=== PATIENT | male | born 1960 | race African-American/Black ===

== ENCOUNTER 2018-02-27 20:38 | Inpatient (IN) ==
--- OUTSIDE RECORDS SUMMARY | 2018-02-27 20:54 | External Medical Summary | Continuity of Care Document ---
:1960 Author Organization [facility] in [place] Allergies Active Description Code Type Severity Reaction Onset Reported/ Identified Relationship Clinical to Patient Status Yes Toradol NKMA Severe N/A 11/01/2014 Yes Ultram NKMA Mild N/A 11/01/2014 Yes Toradol NKMA Severe N/A 11/01/2014 Yes Ultram NKMA Mild N/A 11/01/2014 Yes iodine NKMA N/A hives 03/27/2017 Yes traMADol NKMA N/A hives 03/27/2017 Yes iodine NKMA N/A hives 03/27/2017 Yes traMADol NKMA N/A hives 03/27/2017 Medications Medication Packaging Start Stop Route Dosage Sig Date Date 11/01/20 Oral HYDROcodone(HYDR 4 14 Oral, q12hr Ocodone) 11/03/20 Oral 0.5 mg ALPRAZolam(Xanax 4 14 0.5 mg, ) Oral, BID, PRN: as needed for anxiety 11/03/20 Oral 81 mg aspirin(aspirin) 4 14 81 mg, Oral, Daily 0.5 mL 11/01/20 IV Push 1 mg LORazepam(Ativan 4 14 1 mg, IV ) Push, Once 1 tabs 11/03/20 Oral HYDROcodone-acet 4 14 1 tabs, aminophen([place] Oral, QID, 1 10 mg-325 mg tablet oral oral tablet) 3-4 times a day as needed, PRN: as needed for pain 11/03/20 Oral multivitamin(mul 4 14 1 tablet, tivitamin) Oral, Daily 11/03/20 Oral 75 mg pregabalin(Kitty 4 14 75 mg, Oral, a) BID 11/03/20 Oral 400 mg gabapentin(gabap 4 14 400 mg, entin) Oral, QID 11/03/20 Oral 15 mg mirtazapine(mirt 4 14 15 mg, Oral, azapine) Bedtime (once a day) 11/03/20 Oral 60 mg DULoxetine(DULox 4 14 60 mg, Oral, etine) BID 1 Each 11/04/20 Oral 2 mg nicotine(nicotin 4 14 2 mg, 1 e 2 mg oral Each, Oral, transmucosal q1hr, PRN: gum) Other (See Comment) 1 patches 11/04/20 TransDermal nicotine(Habitro 4 14 1 patches, l 14 mg/24 hr TransDermal, transdermal Daily film, extended release) 2 tabs 11/04/20 Oral 650 mg acetaminophen(ac 4 14 650 mg, etaminophen) Oral, q4hr, PRN: Pain Mild (1-3) 1 tabs 11/03/20 Oral 4 mg ondansetron(Zofr 4 14 4 mg, Oral, an) q6hr, PRN: Nausea 1 tabs 11/03/20 Oral 1 mg folic acid(folic 4 14 1 mg, Oral, acid) Daily 1 mL 11/03/20 IV Push 2 mg LORazepam(Ativan 4 14 2 mg, IV ) Push, Once, PRN: Seizure 1 mL 11/03/20 IntraMuscular 25 mg promethazine(Phe 4 14 25 mg, nergan) IntraMuscula r, q4hr, PRN: Nausea 0.1 mL 11/03/20 IV Push 0.5 mg haloperidol(Hald 4 14 0.5 mg, IV ol) Push, q2hr, PRN: Other (See Comment) 1 tabs 11/03/20 Oral 100 mg thiamine(thiamin 4 14 100 mg, e) Oral, Daily 1 caps 11/04/20 Oral 60 mg DULoxetine(DULox 4 14 60 mg, Oral, etine) Daily 1 tabs 11/04/20 Oral 15 mg mirtazapine(mirt 4 14 15 mg, Oral, azapine) Bedtime (once a day) 1 tabs 11/04/20 Oral 81 mg aspirin(aspirin) 4 14 81 mg, Oral, Daily 1 caps 11/04/20 Oral 400 mg gabapentin(gabap 4 14 400 mg, entin) Oral, QID 1 tabs 11/04/20 Oral HYDROcodone-acet 4 14 1 tabs, aminophen(HYDROc Oral, q8hr, odone-acetaminop PRN: Pain hen 7.5 mg-325 Moderate mg oral tablet) (4-6) 1 tabs 04/24/20 Oral HYDROcodone-acet 4 17 1 tabs, aminophen(HYDROc Oral, q8hr, odone-acetaminop PRN: Pain hen 7.5 mg-325 Moderate mg oral tablet) (4-6) 1 caps 04/24/20 Oral 60 mg DULoxetine(DULox 4 17 1 caps, etine 60 mg oral Oral, Daily delayed release capsule) 1 tabs 04/24/20 Oral 81 mg aspirin(aspirin 4 17 1 tabs, 81 mg oral Oral, Daily tablet, chewable) 1 tabs 04/24/20 Oral 15 mg mirtazapine(mirt 4 17 1 tabs, azapine 15 mg Oral, oral tablet) Bedtime (once a day) 1 caps 10/06/20 Oral 400 mg gabapentin(gabap 4 15 1 caps, entin 400 mg Oral, QID oral capsule) 1 tabs 11/04/20 Oral 5 mg amLODIPine(amLOD 4 14 5 mg, Oral, IPine) Daily 2 tabs 08/16/20 Oral sulfamethoxazole 5 15 2 tabs, -trimethoprim(Ba Oral, BID, ctrim DS 800 for 10 days, mg-160 mg oral SUP MD tablet) EVANGELINA, 40 tabs, 0 Refill(s) 1 tabs 08/17/20 Oral oxyCODONE-acetam 5 15 1 tabs, inophen(oxyCODON Oral, Once E-acetaminophen 5 mg-325 mg oral tablet) 0.5 mL 08/17/20 IV Push 1 mg LORazepam(Ativan 5 15 1 mg=0.5 mL, ) IV Push, Once 1 mL 08/17/20 IV Push 4 mg morphine(morphin 5 15 4 mg=1 mL, e 4 mg/mL IV Push, syringe 1 mL) Once, PRN: Pain 1 tabs 04/24/20 Oral acetaminophen-co 5 17 1 tabs, deine(Tylenol Oral, q6hr, with Codeine #3 PRN: as oral tablet) needed for pain, 12 tabs, 0 Refill(s) 2 mL 08/21/20 IV Push 4 mg ondansetron(Zofr 5 15 4 mg=2 mL, an) IV Push, Once 0.5 mL 08/22/20 IV Push 0.5 mg HYDROmorphone(Di 5 15 0.5 mg=0.5 laudid) mL, IV Push, q15min, PRN: Pain 1 tabs 08/29/20 Oral HYDROcodone-acet 5 15 1 tabs, aminophen([place] Oral, TID, 7.5 mg-325 mg for 5 days, oral tablet) PRN: as needed for pain, 15 tabs, 0 Refill(s) 1 tabs 04/01/20 Oral HYDROcodone-acet 7 17 1 tabs, aminophen([place] Oral, q6hr, 10 mg-325 mg for 5 days, oral tablet) PRN: as needed for pain, 20 tabs, 0 Refill(s) Oral pregabalin(Kitty 7 Oral, 0 a) Refill(s) 1 tabs Oral 10 mg pravastatin(prav 7 10 mg=1 astatin 10 mg tabs, Oral, oral tablet) Daily, 30 tabs, 2 Refill(s) 1 tabs Oral 10 mg amLODIPine(amLOD 7 10 mg=1 IPine 10 mg oral tabs, Oral, tablet) Daily, 30 tabs, 2 Refill(s) 1 tabs Oral 81 mg aspirin(aspirin 7 81 mg=1 81 mg oral tabs, Oral, tablet, Daily, 30 chewable) tabs, 3 Refill(s) 1 tabs SubLingual 0.4 mg nitroglycerin(ni 7 0.4 mg=1 troglycerin 0.4 tabs, mg sublingual SubLingual, tablet) q5min, PRN: as needed for chest pain, 30 tabs, 1 Refill(s) Problems Date Dx Attending Type Code Diagnosis Diagnosed By Coded 06/30/2015 Kade NELSON, Reason 724.5 BACKACHE, UNSPECIFIED Florentin Y 06/30/2015 Kade NELSON, Reason 799.9 OTHER UNKNOWN AND Florentin Y UNSPECIFIED CAUSE OF MORBIDITY OR MORTALITY 08/09/2015 Kade NELSON, Final 305.1 TOBACCO USE DISORDER Florentin Y 08/09/2015 Kade NELSON, Final 682.3 CELLULITIS AND Florentin Palm ABSCESS OF UPPER ARM AND FOREARM 08/09/2015 Kade NELSON, Reason 709.9 UNSPECIFIED DISORDER Florentin Palm OF SKIN AND SUBCUTANEOUS TISSUE 11/20/2016 Braun Howard Final F17.210 Nicotine dependence, cigarettes, uncomplicated 11/20/2016 Braun Howard Final J44.9 Chronic obstructive pulmonary disease, unspecified 11/20/2016 Braun Howard Reason R05 Cough 03/27/2017 Chandra, Final G89.29 Other chronic pain [place] 03/27/2017 Chandra, Final I10 Essential (primary) [place] hypertension 03/27/2017 Chandra, Final 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 03/27/2017 Chandra, Final Z77.090 Contact with and [place] (suspected) exposure to asbestos 04/24/2017 Sanjay Final I10 Essential (primary) Gabriel, Dwayne hypertension Kirill 04/24/2017 Grace Final I25.10 Atherosclerotic heart Dwayne Rios disease of [place] Kirill coronary artery without angina pectoris 01/29/2018 Mensah Nelson Final F17.210 Nicotine dependence, cigarettes, uncomplicated 01/29/2018 Mensah Nelson Final F43.10 Post-traumatic stress disorder, unspecified 01/29/2018 Mensah Nelson Final I10 Essential (primary) hypertension 01/29/2018 Mensah Nelson Final I25.10 Atherosclerotic heart disease of [place] coronary artery without angina pect 01/29/2018 Mensah Nelson Final J32.9 Chronic sinusitis, unspecified 01/29/2018 Mensah Nelson Reason R05 Cough 01/29/2018 Mensah Nelson Final Z79.82 intermediate (current) use of aspirin 01/29/2018 Mensah Nelson Final Z86.73 Personal history of transient ischemic attack (TIA), and cerebral infarctio 01/29/2018 Mensah Nelson Final Z88.6 Allergy status to analgesic agent status 01/29/2018 Mensah Nelson Final Z91.041 Radiographic dye allergy status 01/29/2018 Mensah Nelson Final Z91.14 Patient''s other noncompliance with medication regimen 01/29/2018 Mensah Nelson Final Z98.890 Other specified postprocedural states Procedures Code Description [place] [address] 03/27/2017 Electrocardiogram, routine ECG with at least 12 leads; tracing only, without interpretation and report [id number] 03/27/2017 Electrocardiogram, routine ECG with at least 12 leads; interpretation and report only 39855 General health 03/27/2017 panel This panel must include the following: Comprehensive metabolic panel (04464) Blood count, complete (CBC), automated and automated differential WBC count (92701 or 03514 and 58070) 54637 Comprehensive 03/27/2017 metabolic panel This panel must include the following: Albumin (97421) Bilirubin, total (21223) Calcium, total (80867) Carbon dioxide (bicarbonate) (16027) Chloride (72044) Creatinine (8 63262 Lipid panel 03/27/2017 This panel must include the following: Cholesterol, serum, total (05667) Lipoprotein, direct measurement, high density cholesterol (HDL cholesterol) (70051) Triglycerides (36492)..... 37399 Urinalysis, by 03/27/2017 dip stick or tablet reagent for bilirubin, glucose, hemoglobin, ketones, leukocytes, nitrite, pH, protein, specific gravity, urobilinogen, any number of these constituents; automated, w 69059 Prostate 03/27/2017 specific antigen (PSA); total 94221 Thyroid 03/27/2017 stimulating hormone (TSH) 27782 Blood count; 03/27/2017 complete (CBC), automated (Hgb, Hct, RBC, WBC and platelet count) and automated differential WBC count 11026 Office or 03/27/2017 other outpatient visit for the evaluation and management of a new patient, which requires these 3 barry components: A comprehensive history; A comprehensive examination; Medical decision sujata 17532 04/24/2017 Electrocardiogram, routine ECG with at least 12 leads; with interpretation and report 51343 Office or 04/24/2017 other outpatient visit for the evaluation and management of a new patient, which requires these 3 barry components: A comprehensive history; A comprehensive examination; Medical decision sujata Results Test Result Range Urinalysis with reflex microscopic - 03/30/17 03:15 Appearance Clear NA Bilirubin Negative NA Negative Blood Negative NA Negative Color Yellow NA Glucose, Urine Negative Negative Ketones Negative Negative Leukocyte Esterase Negative NA Negative Nitrites Negative NA Negative pH 5.5 NA 5.0-8.0 Protein Negative Negative Specific [place] 1.020 NA 1.003-1.030 UA Collection type Clean Catch NA Urobilinogen 0.2 mg/dL <1.0 CBC With Platelet and Differential - 03/30/17 03:15 Absolute Basophils 0.06 10*3/uL 0.00-0.20 Absolute Eosinophils 0.26 10*3/uL 0.00-0.50 Absolute Lymphocytes 1.85 10*3/uL 0.80-3.30 Absolute Monocytes 0.57 10*3/uL 0.30-1.00 Absolute Neutrophils 5.52 10*3/uL 1.90-7.00 Basophils 1 % 0-2 Eosinophils 3 % 0-4 HCT 44.1 % 42.0-52.0 HGB 14.9 g/dL 14.0-18.0 Immature Granulocytes 1.3 % 0.0-1.0 Lymphocytes 22 % 20-46 MCH 32.3 pg 27.0-32.0 MCHC 33.8 g/dL 32.0-36.0 MCV 95.7 fL 82.0-99.0 Monocytes 7 % 4-11 MPV 10.2 fL 8.8-14.8 Neutrophils 66 % 51-75 Platelet Count 295 K/uL 150-400 RBC 4.61 10*6/uL 4.60-6.20 RDW 14.2 % 11.5-14.5 WBC 8.4 K/uL 4.8-10.8 Comprehensive Metabolic Panel (CMP) - 03/30/17 03:15 Albumin 4.0 g/dL 3.5-5.0 Alkaline Phosphatase 61 U/L 40-150 ALT (SGPT) 16 U/L 0-55 Anion Gap 9 mEq/L 3-20 AST (SGOT) 21 U/L 5-34 Bilirubin Total 0.2 mg/dL 0.2-1.2 BUN 17 mg/dL 8-26 Calcium 9.6 mg/dL 8.4-10.2 Chloride 108 mEq/L 99-111 CO2 24 mEq/L 23-31 Creatinine 1.65 mg/dL 0.72-1.25 Globulin 3.6 g/dL 1.8-4.0 Glucose 99 mg/dL 70-99 Potassium 4.5 mEq/L 3.5-5.2 Protein 7.6 g/dL 6.1-7.7 Sodium 141 mEq/L 135-144 Lipid Panel - 03/30/17 03:15 Cardiac Risk 2.7 0.0-5.7 Cholesterol 170 mg/dL 0-199 HDL Cholesterol 62 mg/dL 40-84 LDL Cholesterol 82 mg/dL 0-130 Triglycerides 128 mg/dL 0-149 VLDL Cholesterol 26 mg/dL 0-28 PSA - 03/30/17 03:15 PSA 1.1 ng/mL 0.0-3.5 TSH - 03/30/17 03:15 TSH 1.08 uIU/mL 0.35-4.94 eGFR - 03/30/17 03:15 eGFR 43 mL/min >60 Encounters ACCT No. Visit Discharge Status Pt. Type Provider Facility Loc./Unit Complaint Date/Time [id number] 01/28/2018 01/28/2018 [place] [facility] ED cough 670 03:20:00 04:16:00 [facility] [id number] 11/16/2016 11/16/2016 ARIANNE Emergency Braun [facility] ED fever , flu 992 12:33:00 14:01:00 [facility] [id number] 08/17/2015 08/17/2015 DELTA Braun MD, Via [facility] ED L HAND 755 13:32:00 23:59:59 [facility] [id number] 08/06/2015 08/06/2015 ARIANNE Braun MD, Via [facility] ED SWELLING IN 119 14:12:00 16:21:00 [facility] [id number] 06/29/2015 06/29/2015 DIS Emergency Kade NELSON, Via [facility] ED Cough, Diff 945 15:37:00 15:50:00 Florentin Néstor [facility] on [place] [id number] 06/29/2015 06/29/2015 DIS Emergency Kade NELSON, Via [facility] ED upper back 449 14:52:00 15:27:00 Florentin Néstor Saba pain, cough Hospital on [facility] [id number] 11/01/2014 11/01/2014 CLS Emergency [place] [facility] ED psych eval 596 04:58:00 23:59:59 , [facility] on [facility] [id number] 04/25/2017 Document [id number] 05:23:03 Registrat ion [id number] 03/28/2017 Document [id number] 05:16:02 Registrat ion [id number] 09/01/2015 Document [id number] 14:24:54 Registrat ion [id number] 09/01/2015 Document [id number] 14:14:44 Registrat ion [id number] 09/01/2015 Document [id number] 10:44:47 Registrat ion [id number] 04/24/2017 04/24/2017 DIS Outpatien Grace [facility] NPV CAD 680 13:15:00 23:59:00 t Saba Rios NIERNBERGER [facility] Kirill [id number] 04/24/2017 04/24/2017 DIS Outpatien Grace [facility] Mur I25.10 759 00:01:00 23:59:00 t Saba Rios [facility] Kirill [id number] 03/27/2017 03/27/2017 DIS Outpatien [place] [facility] FM NPV BACK AND 747 11:39:00 23:59:00 t er, Saba SHOULDER [facility] PAIN [id number] 03/27/2017 03/27/2017 DIS Outpatien [place] [facility] Mur i10 918 00:01:00 23:59:00 t er, Saba Card [facility] [id number] 09/08/2015 09/08/2015 DIS Outpatien Prachi, [facility] IM NPV-EST 039 13:53:00 23:59:00 t Sera [facility] [id number] 08/24/2015 08/24/2015 DIS Outpatidarlene Justyna, Via [facility] HAND ISSUE 776 13:55:00 23:59:00 alonso [facility]
--- NOTE | 2018-02-27 21:07 | Emergency Department Report ---
Psych HPI - General Chief Complaint: Psychiatric Symptoms <NickKavya A - 02/27/18 21:07> Stated Complaint: Psych Eval <Kavya Romero - 02/27/18 21:07> Time Seen by Provider: 02/27/18 20:42 <Kavya Romero 02/27/18 21:07> Source: patient <Destinee Romerosandoval Aggarwal - 02/27/18 21:07> Mode of arrival: ambulatory <Kavya Romero 02/27/18 21:07> - History of Present Illness HPI Narrative: 57-year-old male presents to ER with suicidal ideation and depression. Patient says that he has felt like hurting himself for approx. one week. Says he does have a plan but does not want to share it. Patient is agitated and says he is tired of answering everyone questions. Says he has been self medicating with cocaine and alcohol. Patient was sent to ED from [place] for medical clearance. <Kavya Romero 02/28/18 00:01> MD complaint: suicidal ideation <Kavya Romero 02/27/18 21:07> Context: recent alcohol abuse, recent drug abuse <Kavya Romero - 02/27/18 23:59> Associated psychiatric symptoms: suicidal ideation <Kavya Romero 23:59> - Related Data Home Medications Medication Instructions Recorded Confirmed Lidocaine 1 each TP Q8H PRN 02/28/18 02/28/18 Morphine Sulfate *IR* [Morphine 15 mg PO Q12H 02/28/18 02/28/18 Sulfate *Ir*] Oxycodone/Apap 10/325 [Percocet 1 tab PO Q6H PRN 02/28/18 02/28/18 10/325] Pregabalin [Lyrica] 200 mg PO BID 02/28/18 02/28/18 methylPREDNISolone [Medrol DOS-SHAWNEE] 1 pack PO UNK 02/28/18 02/28/18 <Kavya Romero - 02/27/18 21:24> Allergies Allergy/AdvReac Type Severity Reaction Status Date / Time tramadol Allergy Intermediate Rash Verified 02/28/18 02:58 ketorolac [From Toradol] Allergy Unknown Verified 02/28/18 08:06 <Kavya Romero - 18 21:24> Review of Systems All systems: reviewed and negative except as stated <Kavya Romero 21:07> Constitutional: Reports: as per HPI, chills <Kavya Romero Alessia 02/27/18 21:21 > Musculoskeletal: Reports: as per HPI, back pain (chronic), arthralgia (chronic) , myalgia (chronic), other (neck and shoulder chronic) <Kavya Romero Alessia 21:21> Psychiatric: Reports: as per HPI, depression, suicidal thoughts <Kavya Romero 02/27/18 21:21> [facility] Patient Stated Medical History Cataracts Yes Hypertension Yes Myocardial Infarction Yes: x2 Chronic Obstructive Pulmonary Yes Disease (COPD) Depression Yes Post Traumatic Stress Disorder Yes Substance Use Disorder Yes <Kavya Romero 02/27/18 21:21> Surgical History: Shoulder arthroscopy <Kavya Romero 02/27/18 22:24> Family History: Noncontributory <Kavya Romero 02/27/18 22:24> - Social History Household members: significant other <Kavya Romero 02/27/18 22:24> Physical Exam - Limitations Limitations: no limitations <Kavya Romero 02/27/18 21:21> - General General appearance: alert <Kavya Romero 02/27/18 21:21> - Normal Exams: Head:: Normocephalic without trauma <Kavya Romero 02/27/18 21:21> Eyes:: Pupils are PERRLA w/ EOMI, No scleral icterus, irritation <Kavya Romero 02/27/18 21:21> ENMT:: No facial trauma, nasal exudates <Kavya Romero Alessia 02/27/18 22:24> Neck:: Full range of motion, without adenopathy <Destinee Romerosanodval Aggarwal 02/27/18 21:21> Chest/Respirations:: Clear all carvalho, with good airflow, and symmetry bilaterally <RomeroKavya A 02/27/18 21:21> Cardiovascular:: Regular rate and rhythm, without murmur or gallop <Nick Kavya A 02/27/18 21:21> Abdomen:: Bowel sounds positive, soft, non-tender, non-distended, no hepatosplenomegaly <Kavya Romero 02/27/18 21:21> Musculoskeletal:: good range of motion, all extremities <Kavya Romero 23:59> Neurological:: Patient is alert, and oriented, cranial nerves, motor/sensory/ cerebellar, exams w/o gross deficits, to observation <Kavya Romero 02/27 21:21> - Skin Skin exam: Present: warm, dry <Kavya Romero 02/27/18 21:21> - Expanded Psychiatric Exam Expanded psych exam: Present: poor eye contact, restlessness <Kavya Romero 02/27/18 21:21> Course - Consultations Consultation #1: Petey (NAVEEN): Unable to find an alternate location. Because of home of record, pt will need to go to [facility]. Wait will be 24-72hrs; will contact with txfr status as soon as bed available. <March,Luis 02/28/18 01:16> Time: 01:00 <March,[facility] 02/28/18 01:16> Consultation #2: Navarro Telemed: Will admit for obs, while awaiting [facility] txfr. <March,Luis 02/28/18 01:16> [facility]: [facility]00 [facility] Vital Signs Temperature 97.6 F 02/27/18 20:42 Pulse Rate 76 02/27/18 20:42 Respiratory Rate 14 02/27/18 20:42 Blood Pressure 178/108 H 02/27/18 20:42 Pulse Oximetry 97 02/27/18 20:42 Temperature 96.5 F L 03/02/18 16:00 Pulse Rate 95 03/02/18 16:45 Respiratory Rate 28 H 03/02/18 16:45 Blood Pressure 132/86 03/02/18 16:00 Pulse Oximetry 100 03/02/18 16:45 <Kavya Romero 02/27/18 21:07> Psych - MDM Narrative Medical decision making narrative: Patient becoming more agitated. 10mg of Saphris order SL. Provider care turned over to Dr. Romero at 0100. <Kavya Romero /21/18 17:19> Pt sleeping p saphris. Discussed dispo with PV screener. Given duration of wait until txfr, will contact hospitalist for obs admission. <MarchLuis 02/28/18 01:16> - Differential Diagnosis Likely: acute psychosis, chronic schizophrenia, suicidal ideation, bipolar disorder, depression, drug-induced psychotic disorder <March, Luis 02/28/18 01:16> Likely: acute psychosis, chronic schizophrenia, suicidal ideation, bipolar disorder, depression <Kavya Romero Alessia 02/27/18 21:21> - Medical Records Attestation: I reviewed the patient's medical records. <March,Luis 01:16> - Lab Data Attestation: I reviewed the patient's lab results. <March,Luis 02/28/18 01:16> I reviewed the patient's lab results. <Kavya Romero Alessia 23:59> Result diagrams: 03/02/18 07:46 03/02/18 07:47 <Kavya Romero Alessia 02/27/18 21:07> Lab Results 02/27/18 02/27/18 02/27/18 Range/Units 21:27 21:27 21:27 WBC 4.8 (4.5-11.0) T/MM3 RBC 4.62 (4.50-5.90) M/MM3 Hgb 14.4 (13.5-17.5) GM/DL Hct 42.7 (41-53) % MCV 92.4 (80-100) UM3 MCH 31.2 (26-34) UUG MCHC 33.7 (31-37) GM/DL RDW Std Deviation 50.4 H (36.9-50.2) FL Plt Count 294 (130-400) T/MM3 MPV 9.9 (9.4-12.4) UM3 Immature Gran % (Auto) 0.2 (0.0-0.5) % Neut % (Auto) 50.3 (33-66) % Lymph % (Auto) 35.2 (23-45) % Scurry % (Auto) 7.9 (0-9.0) % Eos % (Auto) 5.6 H (0-4) % Baso % (Auto) 0.8 (0-2) % Neut # (Auto) 2.4 (1.8-7.7) T/MM3 Lymph # (Auto) 1.7 (1-4.8) T/MM3 Scurry # (Auto) 0.4 (0-0.8) T/MM3 Eos # (Auto) 0.3 (0-0.5) T/MM3 Baso # (Auto) 0.0 (0-0.2) T/MM3 Abs Immat Gran (auto) 0.01 (0.00-0.03) T/MM3 Turbidity < 20 (0-20) Sodium 144 (134-144) MEQ/L Potassium 3.8 (3.6-5) MEQ/L Chloride 108 H (98-107) MEQ/L Carbon Dioxide 26 (22-30) MEQ/L Anion Gap 10 (5-15) meq/L BUN 12.0 (9-20) MG/DL Creatinine 1.4 (0.8-1.5) mg/dL GFR Calculation 52 BUN/Creatinine Ratio 9 (6-26) RATIO Glucose 110 (75-110) MG/DL Calculated Osmolality 278 (261-280) MOSM/KG Calcium 9.2 (8.4-10.2) MG/DL Phosphorus (2.5-4.5) MG/DL Magnesium (1.6-2.3) MG/DL Total Bilirubin 0.20 (0.20-1.30) MG/DL Icterus Index < 2 (0-7) AST 21 (17-59) U/L ALT 15 (1-50) U/L Alkaline Phosphatase 49 (38-126) U/L Troponin I < 0.012 (0-0.12) ng/ml Total Protein 6.7 (6.3-8.2) g/dL Albumin 3.9 (3.5-5.0) g/dL Globulin 2.8 (2.4-3.6) G/DL Albumin/Globulin Ratio 1.4 (1.1-2.2) RATIO TSH 1.49 (0.47-4.68) mIU/L Specimen Hemolysis < 15 < 15 (0-25) Ur Collection Type Urine Color (YELLOW) Urine Clarity Urine pH (5.0-8.0) Ur Specific Nova (1.015-1.025) Urine Protein (NEGATIVE) Urine Glucose (UA) (NEGATIVE) Urine Ketones (NEGATIVE) Urine Occult Blood (NEGATIVE) Urine Nitrate (NEGATIVE) Urine Bilirubin (NEGATIVE) Urine Urobilinogen (NORMAL) EU/DL Ur Leukocyte Esterase (NEGATIVE) Urinalysis Comment Salicylates < 1.0 L (2-20) MG/DL Urine Opiates Screen ng/mL Ur Oxycodone Screen ng/mL Urine Methadone Screen ng/mL Ur Propoxyphene Screen ng/mL Acetaminophen < 10 L (10-30) UG/ML Ur Barbiturates Screen ng/mL U Tricyclic Antidepress ng/mL Ur Phencyclidine Scrn ng/mL Ur Amphetamines Screen ng/mL U Methamphetamines Scrn ng/mL U Benzodiazepines Scrn ng/mL Urine Cocaine Screen ng/mL U Cannabinoids Screen ng/mL Ur Drug Screen Confirm Alcohol, Quantitative <10 (<10) mg/dL 02/27/18 02/27/18 02/27/18 Range/Units 21:35 21:35 21:35 WBC (4.5-11.0) T/MM3 RBC (4.50-5.90) M/MM3 Hgb (13.5-17.5) GM/DL Hct (41-53) % MCV (80-100) UM3 MCH (26-34) UUG MCHC (31-37) GM/DL RDW Std Deviation (36.9-50.2) FL Plt Count (130-400) T/MM3 MPV (9.4-12.4) UM3 Immature Gran % (Auto) (0.0-0.5) % Neut % (Auto) (33-66) % Lymph % (Auto) (23-45) % Scurry % (Auto) (0-9.0) % Eos % (Auto) (0-4) % Baso % (Auto) (0-2) % Neut # (Auto) (1.8-7.7) T/MM3 Lymph # (Auto) (1-4.8) T/MM3 Scurry # (Auto) (0-0.8) T/MM3 Eos # (Auto) (0-0.5) T/MM3 Baso # (Auto) (0-0.2) T/MM3 Abs Immat Gran (auto) (0.00-0.03) T/MM3 Turbidity (0-20) Sodium (134-144) MEQ/L Potassium (3.6-5) MEQ/L Chloride (98-107) MEQ/L Carbon Dioxide (22-30) MEQ/L Anion Gap (5-15) meq/L BUN (9-20) MG/DL Creatinine (0.8-1.5) mg/dL GFR Calculation BUN/Creatinine Ratio (6-26) RATIO Glucose (75-110) MG/DL Calculated Osmolality (261-280) MOSM/KG Calcium (8.4-10.2) MG/DL Phosphorus (2.5-4.5) MG/DL Magnesium (1.6-2.3) MG/DL Total Bilirubin (0.20-1.30) MG/DL Icterus Index (0-7) AST (17-59) U/L ALT (1-50) U/L Alkaline Phosphatase (38-126) U/L Troponin I (0-0.12) ng/ml Total Protein (6.3-8.2) g/dL Albumin (3.5-5.0) g/dL Globulin (2.4-3.6) G/DL Albumin/Globulin Ratio (1.1-2.2) RATIO TSH (0.47-4.68) mIU/L Specimen Hemolysis (0-25) Ur Collection Type Urine, void-cc/notcc Urine Color Yellow (YELLOW) Urine Clarity Clear Urine pH 6.0 (5.0-8.0) Ur Specific Nova 1.020 (1.015-1.025) Urine Protein Negative (NEGATIVE) Urine Glucose (UA) Trace A (NEGATIVE) Urine Ketones Negative (NEGATIVE) Urine Occult Blood Negative (NEGATIVE) Urine Nitrate Negative (NEGATIVE) Urine Bilirubin Negative (NEGATIVE) Urine Urobilinogen 0.2 (NORMAL) EU/DL Ur Leukocyte Esterase Negative (NEGATIVE) Urinalysis Comment Microscopic not ind. Salicylates (2-20) MG/DL Urine Opiates Screen Negative ng/mL Ur Oxycodone Screen Negative ng/mL Urine Methadone Screen Negative ng/mL Ur Propoxyphene Screen Negative ng/mL Acetaminophen (10-30) UG/ML Ur Barbiturates Screen Negative ng/mL U Tricyclic Antidepress Negative ng/mL Ur Phencyclidine Scrn Negative ng/mL Ur Amphetamines Screen Negative ng/mL U Methamphetamines Scrn Negative ng/mL U Benzodiazepines Scrn Negative ng/mL Urine Cocaine Screen Positive ng/mL U Cannabinoids Screen Negative ng/mL Ur Drug Screen Confirm Sent out Alcohol, Quantitative (<10) mg/dL 02/28/18 02/28/18 02/28/18 Range/Units 07:46 07:46 07:46 WBC 4.9 (4.5-11.0) T/MM3 RBC 4.64 (4.50-5.90) M/MM3 Hgb 14.4 (13.5-17.5) GM/DL Hct 42.6 (41-53) % MCV 91.8 (80-100) UM3 MCH 31.0 (26-34) UUG MCHC 33.8 (31-37) GM/DL RDW Std Deviation 49.7 (36.9-50.2) FL Plt Count 269 (130-400) T/MM3 MPV 9.7 (9.4-12.4) UM3 Immature Gran % (Auto) 0.0 (0.0-0.5) % Neut % (Auto) 47.2 (33-66) % Lymph % (Auto) 38.2 (23-45) % Scurry % (Auto) 8.3 (0-9.0) % Eos % (Auto) 5.7 H (0-4) % Baso % (Auto) 0.6 (0-2) % Neut # (Auto) 2.3 (1.8-7.7) T/MM3 Lymph # (Auto) 1.9 (1-4.8) T/MM3 Scurry # (Auto) 0.4 (0-0.8) T/MM3 Eos # (Auto) 0.3 (0-0.5) T/MM3 Baso # (Auto) 0.0 (0-0.2) T/MM3 Abs Immat Gran (auto) 0.00 (0.00-0.03) T/MM3 Turbidity < 20 (0-20) Sodium 143 (134-144) MEQ/L Potassium 3.6 (3.6-5) MEQ/L Chloride 110 H (98-107) MEQ/L Carbon Dioxide 24 (22-30) MEQ/L Anion Gap 9 (5-15) meq/L BUN 12.0 (9-20) MG/DL Creatinine 1.3 (0.8-1.5) mg/dL GFR Calculation 57 BUN/Creatinine Ratio 9 (6-26) RATIO Glucose 126 H (75-110) MG/DL Calculated Osmolality 277 (261-280) MOSM/KG Calcium 9.1 (8.4-10.2) MG/DL Phosphorus (2.5-4.5) MG/DL Magnesium (1.6-2.3) MG/DL Total Bilirubin (0.20-1.30) MG/DL Icterus Index < 2 (0-7) AST (17-59) U/L ALT (1-50) U/L Alkaline Phosphatase (38-126) U/L Troponin I < 0.012 Cancelled (0-0.12) ng/ml Total Protein (6.3-8.2) g/dL Albumin (3.5-5.0) g/dL Globulin (2.4-3.6) G/DL Albumin/Globulin Ratio (1.1-2.2) RATIO TSH (0.47-4.68) mIU/L Specimen Hemolysis 21 Cancelled (0-25) Ur Collection Type Urine Color (YELLOW) Urine Clarity Urine pH (5.0-8.0) Ur Specific Nova (1.015-1.025) Urine Protein (NEGATIVE) Urine Glucose (UA) (NEGATIVE) Urine Ketones (NEGATIVE) Urine Occult Blood (NEGATIVE) Urine Nitrate (NEGATIVE) Urine Bilirubin (NEGATIVE) Urine Urobilinogen (NORMAL) EU/DL Ur Leukocyte Esterase (NEGATIVE) Urinalysis Comment Salicylates (2-20) MG/DL Urine Opiates Screen ng/mL Ur Oxycodone Screen ng/mL Urine Methadone Screen ng/mL Ur Propoxyphene Screen ng/mL Acetaminophen (10-30) UG/ML Ur Barbiturates Screen ng/mL U Tricyclic Antidepress ng/mL Ur Phencyclidine Scrn ng/mL Ur Amphetamines Screen ng/mL U Methamphetamines Scrn ng/mL U Benzodiazepines Scrn ng/mL Urine Cocaine Screen ng/mL U Cannabinoids Screen ng/mL Ur Drug Screen Confirm Alcohol, Quantitative (<10) mg/dL 02/28/18 03/01/18 03/01/18 Range/Units 07:46 04:32 04:32 WBC 7.7 D (4.5-11.0) T/MM3 RBC 5.50 (4.50-5.90) M/MM3 Hgb 16.6 D (13.5-17.5) GM/DL Hct 49.7 D (41-53) % MCV 90.4 (80-100) UM3 MCH 30.2 (26-34) UUG MCHC 33.4 (31-37) GM/DL RDW Std Deviation 49.5 (36.9-50.2) FL Plt Count 325 (130-400) T/MM3 MPV 10.4 (9.4-12.4) UM3 Immature Gran % (Auto) 0.1 (0.0-0.5) % Neut % (Auto) 63.2 (33-66) % Lymph % (Auto) 28.0 (23-45) % Scurry % (Auto) 6.1 (0-9.0) % Eos % (Auto) 2.3 (0-4) % Baso % (Auto) 0.3 (0-2) % Neut # (Auto) 4.8 (1.8-7.7) T/MM3 Lymph # (Auto) 2.2 (1-4.8) T/MM3 Scurry # (Auto) 0.5 (0-0.8) T/MM3 Eos # (Auto) 0.2 (0-0.5) T/MM3 Baso # (Auto) 0.0 (0-0.2) T/MM3 Abs Immat Gran (auto) 0.01 (0.00-0.03) T/MM3 Turbidity < 20 (0-20) Sodium 139 (134-144) MEQ/L Potassium 4.0 (3.6-5) MEQ/L Chloride 104 (98-107) MEQ/L Carbon Dioxide 22 (22-30) MEQ/L Anion Gap 13 (5-15) meq/L BUN 12.0 (9-20) MG/DL Creatinine 1.5 D (0.8-1.5) mg/dL GFR Calculation 48 BUN/Creatinine Ratio 8 (6-26) RATIO Glucose 99 (75-110) MG/DL Calculated Osmolality 268 (261-280) MOSM/KG Calcium 10.2 D (8.4-10.2) MG/DL Phosphorus 3.1 (2.5-4.5) MG/DL Magnesium 2.1 (1.6-2.3) MG/DL Total Bilirubin (0.20-1.30) MG/DL Icterus Index < 2 (0-7) AST (17-59) U/L ALT (1-50) U/L Alkaline Phosphatase (38-126) U/L Troponin I (0-0.12) ng/ml Total Protein (6.3-8.2) g/dL Albumin (3.5-5.0) g/dL Globulin (2.4-3.6) G/DL Albumin/Globulin Ratio (1.1-2.2) RATIO TSH (0.47-4.68) mIU/L Specimen Hemolysis < 15 (0-25) Ur Collection Type Urine Color (YELLOW) Urine Clarity Urine pH (5.0-8.0) Ur Specific Nova (1.015-1.025) Urine Protein (NEGATIVE) Urine Glucose (UA) (NEGATIVE) Urine Ketones (NEGATIVE) Urine Occult Blood (NEGATIVE) Urine Nitrate (NEGATIVE) Urine Bilirubin (NEGATIVE) Urine Urobilinogen (NORMAL) EU/DL Ur Leukocyte Esterase (NEGATIVE) Urinalysis Comment Salicylates (2-20) MG/DL Urine Opiates Screen ng/mL Ur Oxycodone Screen ng/mL Urine Methadone Screen ng/mL Ur Propoxyphene Screen ng/mL Acetaminophen (10-30) UG/ML Ur Barbiturates Screen ng/mL U Tricyclic Antidepress ng/mL Ur Phencyclidine Scrn ng/mL Ur Amphetamines Screen ng/mL U Methamphetamines Scrn ng/mL U Benzodiazepines Scrn ng/mL Urine Cocaine Screen ng/mL U Cannabinoids Screen ng/mL Ur Drug Screen Confirm Alcohol, Quantitative (<10) mg/dL <Kavya Romero - 02/27/18 21:21> Disposition Clinical Impression: Suicidal ideation Depression Qualifiers: Depression Type: major depressive disorder Major depression recurrence: recurrent Active/Remission status: currently active Major depression episode severity: severe Psychotic features: with psychotic features Qualified Code(s): F33.3 - Major depressive disorder, recurrent, severe with psychotic symptoms Drug-induced psychotic disorder Qualifiers: Complication of substance-induced condition: with unspecified complication Qualified Code(s): F19.959 - Other psychoactive substance use, unspecified with psychoactive substance-induced psychotic disorder, unspecified <Kavya Romero - 03/02/18 17:19> Disposition: 02 To OBS [facility] <Kavya Romero - 03/02/18 17:19> Print Language: Icelandic <Kavya Romero 03/02/18 17:19> Condition: Improved <Kavya Romero 03/02/18 17:19> Prescriptions: No Action Oxycodone/Apap 10/325 [Percocet 10/325] 1 tab PO Q6H PRN PRN Reason: Pain Morphine Sulfate *IR* [Morphine Sulfate *Ir*] 15 mg PO Q12H methylPREDNISolone [Medrol DOS-SHAWNEE] 1 pack PO UNK Pregabalin [Lyrica] 200 mg PO BID Lidocaine 1 each TP Q8H PRN PRN Reason: Pain <Kavya Romero 02/27/18 21:24> Time of Disposition: 01:16 <MarchLuis 02/28/18 01:16> - Seen By: midlevel and physician <Kavya Romero 03/02/18 17:19> midlevel and physician <Luis Romero 02/28/18 01:16>
[2018-02-27] MEDS ORDERED: ASENAPINE 5 MG SUBLINGUAL TABLET SL ONE (23:13)
[2018-02-28 02:30] VITALS: BMI 22.1
--- NOTE | 2018-02-28 02:50 | History & Physical Report ---
History of Present Illness Date: 02/28/18 Chief complaint: altered mentations HPI: This is a 58 y/o male who has a history of cocaine abuse. Apparently his girl friend brought him to the ED tonight because he continued to have very uncontrolled behavior. Please see ED and Psych note for further details for the patient is unable to provide to me directly tonight. The patient was hostile in the ED and was given a sublingual antipsychotic which did help stabilize him. He was seen by psychiatric screener who recommended admission to OSH. Currently there are no beds available. Thus the patient is not stable for discharge to the community. He will be medically admitted for cocaine detoxification. It is not possible to get a history from the patient and the girlfriend is long gone. Thus this author depended on the information gathered by the ED staff regarding this patient. Review of Systems Review of systems: not possible to obtain at this time. Past Medical History Medical History Updates: HTN, COPD, CAD, PTSD, substance abuse, schizophrenia Surgical History: Shoulder arthroscopy Family History: Unable to Obtain - Social History Smoking status: Current every day smoker Last drink: unknown Medications Home Medications Medication Instructions Recorded Confirmed Type Lidocaine 1 each TP Q8H PRN 02/28/18 02/28/18 History Morphine Sulfate *IR* [Morphine 15 mg PO Q12H 02/28/18 02/28/18 History Sulfate *Ir*] Oxycodone/Apap 10/325 [Percocet 1 tab PO Q6H PRN 02/28/18 02/28/18 History 10/325] Pregabalin [Lyrica] 200 mg PO BID 02/28/18 02/28/18 History methylPREDNISolone [Medrol DOS-SHAWNEE] 1 pack PO UNK 02/28/18 02/28/18 History Allergies Allergy/AdvReac Type Severity Reaction Status Date / Time tramadol Allergy Intermediate Rash Verified 02/28/18 02:58 ketorolac [From Toradol] Allergy Unknown Verified 02/28/18 08:06 Exam Vital Signs: Temperature 97.8 F 02/28/18 01:34 Pulse Rate 58 L 02/28/18 01:34 Respiratory Rate 14 02/28/18 01:34 Blood Pressure 158/89 H 02/28/18 01:34 Pulse Oximetry 100 02/28/18 01:34 Telemetry Rhythm: Sinus Rhythm Height/Weight/BMI: Height 1.83 m Weight 74.2 kg Body Mass Index 22.1 - Constitutional Present: mild distress, well nourished, well developed, obese, disheveled, somnolent - Routine HEENT Exam Head: Present: normocephalic, atraumatic Eye: Present: PERRL ENT: Present: mucous membranes moist - Routine Neck Exam Present: full ROM - Routine Respiratory Exam Present: CTA bilaterally - Routine Cardiovascular Exam Present: RRR, no murmur - Routine Abdominal Exam Present: soft, non tender - Routine Extremities Exam Present: no edema, full ROM - Routine Back/Spine/Pelvis Exam Back/Spine: Present: full ROM - Routine Skin Exam Present: intact - Routine Neurological Exam Present: CN II-XII intact, moving all extremities, normal tone, vision grossly intact, hearing grossly intact. Absent: alert, oriented X3, motor deficit - Routine Psychiatric Exam Present: anxious, agitated, paranoid. Absent: normal affect, normal thought process, suicidal ideation, homicidal ideation, cooperative Results - Labs CBC & Chem 7: 02/28/18 07:46 02/28/18 07:46 Labs: pateints labs reviewed above and will be commented on below. Assessment and Plan (1) Drug-induced psychotic disorder Current visit: Yes Status: Acute (2) Cocaine intoxication Current visit: Yes Status: Acute (3) Hypertension Current visit: Yes Status: Acute (4) Coronary artery disease Current visit: Yes Status: Acute (5) Schizoaffective disorder Current visit: Yes Status: Acute (6) Suicidal ideation Current visit: Yes Status: Acute (7) COPD (chronic obstructive pulmonary disease) Current visit: Yes Status: Acute Assessment and Plan: 1. suicidal ideation acute POA: this is information gathered by the nursing/ screening staff. Patient does not describe this. Regardless was screened and is a candidate to be admitted to OSH when a bed is available. Town Manager should assist with this transition when possible 2. cocaine intoxication acute POA: will gentle hydrate. ativan prn. 3. acute psychotic break acute POA: patient very agitated and paranoid on presentation to the ED. related to cocaine but also with underlying psychiatric disease. given sublingual antipsychotic and did help. Will try to avoid if possible further so that social work can assess in the am. currently cooperating with nursing. icu setting. 4. HTN chronic POA: patient is not taking meds currently. hydralazine prn overnight. try to find out what he is suppose to be taking and start 5. CAD history of POA: currently troponin neg. will ask for EKG also as a precaution with cocaine on board 6. COPD chronic POA: inhalers as indicated 7. DVT ppx: SCD, lovenox DVT Prophylaxis: SCD's, Lovenox Resuscitation Status: Full Code - Time spent with patient Time with patient PN: 30 minutes - Physician Narrative Physician: Rosanna Plascencia MD Narrative: Date: 02/28/18 Time: 9:30 AM-I've seen and examined the patient. I've reviewed the H&P above and agree. Please see my additions below. The patient was seen this morning in his room. He is somnolent and history is mostly obtained from the chart. No family or significant others are present. He was admitted last night due to increasing psychiatric difficulties and reported suicidal ideation. He had been taking cocaine. He was seen initially at [facility] and was referred to the emergency department. In the ER he was combative and given Saphris antipsychotic 10 mg sublingual 1 which did help him become much calmer. He was admitted to CCU for night to stabilize him medically and to await for placement at a psychiatric facility. He was noted to have elevated blood pressure and reportedly has a history of hypertension but has not been taking medications. He was given IV hydralazine. This morning his blood pressure was elevated and he was anxious. Prior to my arrival he was given IV hydralazine and oral Ativan and is currently sleeping soundly. He awakens to voice and is able to answer a few questions. He states he has chronic pain in his spine and the location of his neck and back. He states occasionally he'll have a headache when his neck is hurting. He denies any chest pain, shortness of breath or nausea. He cannot give me the name of a primary care physician. He is able to tell me he is allergic to Toradol and tramadol. I'm not able to get any further history from him. Comprehensive review of systems-unable to obtain secondary to patient's somnolence. Past medical history-per chart he has hypertension, COPD, CAD, PTSD, substance abuse, schizophrenia Past surgical history-shoulder arthroscopy Family history-unable to obtain Allergies-Toradol and tramadol unknown reactions Social history-reportedly a smoker, significant other brought him to [place], but is not here. Medications-reportedly he has not been taking his medications. We were given the name of a pharmacy in [place] and he has not filled any prescriptions there since November. All of those medications were for pain Physical exam HEENT-sclera anicteric, he will not open his eyes widely enough for me to examine his pupils. Oropharynx is mildly dry. Neck is supple. Chest-clear to auscultation bilaterally Cardiovascular-regular rate and rhythm-blood pressure was 149/77 Abdomen-soft, nontender, nondistended with positive bowel sounds -no Levin Extremities-no edema Skin-warm and dry, no rashes Neurologic-the patient is able to answer a few questions. He knows he is at [facility]. He states today is his birthday which is accurate per his admission information. Telemetry shows occasional PVCs EKG shows sinus rhythm with PVCs, nonspecific ST elevation. Repeat lab this morning CBC is essentially normal. Eosinophil percent is mildly high at 5.7. Basic metabolic is normal other than chloride of 110 and glucose of 126. Magnesium and phosphorus are normal. Troponin is normal 2. TSH is normal UA showed trace glucose Salicylates were less than 1. Acetaminophen level less than 10. Urine drug screen was positive for cocaine only Impression Psychosis with history of schizophrenia and cocaine intoxication Reported history of schizophrenia Cocaine use Elevated blood pressure with reported history of hypertension Coronary artery disease with no reports of chest pain and normal troponin 2 Recent suicidal ideation Reported COPD-lungs are clear and oxygenation is normal on room air Somnolence secondary to antipsychotics and Ativan Plan Continue to stabilize in CCU. When he is more awake, we'll try to obtain the name of his previous physicians so we can obtain records regarding medical history and medications. Give hydralazine when necessary, if blood pressure remains elevated will start oral antihypertensives. Breathing treatments when necessary We'll discuss with case management regarding possible transfer to psychiatric facility when medically stable Suicide precautions Hospital Course Summary Disclaimer: The visit summary below is not to be considered part of the above Progress Note.
[2018-02-28] MEDS ORDERED: NS 1,000 ML IV SCH (02:52)
[2018-02-28] MEDS ORDERED: ONDANSETRON 4 MG/2 ML INJECTION IVP PRN (02:52)
[2018-02-28] MEDS ORDERED: ACETAMINOPHEN 500 MG TABLET PO PRN (02:52)
[2018-02-28] MEDS: HYDRALAZINE 20 MG/ML INJECTION IVP PRN ×4 (03:08→22:20)
[2018-02-28] MEDS: SALINE FLUSH 10ml SYRINGE IVF PRN ×2 (03:49→22:53)
[2018-02-28] MEDS: ENOXAPARIN 40 MG/0.4 ML INJECTION SQ SCH (11:26)
[2018-02-28] MEDS: TRIAMTERENE/HCTZ 37.5 MG-25 MG TABLET PO SCH (11:59)
[2018-02-28] MEDS: Oxycodone/Apap 10/325 1 TAB PO PRN (17:25)
[2018-02-28] MEDS ORDERED: MORPHINE SULFATE 2mg INJ IVP PRN (20:39)
[2018-02-28] MEDS: PREGABALIN 100 MG CAPSULE PO SCH (20:50)
[2018-02-28] MEDS: MORPHINE SULFATE 4mg INJECTION IVP PRN (20:50)
[2018-03-01] MEDS: MORPHINE SULFATE 4mg INJECTION IVP PRN (02:00)
[2018-03-01] MEDS: HYDRALAZINE 20 MG/ML INJECTION IVP PRN ×3 (04:25→23:08)
[2018-03-01] MEDS: SALINE FLUSH 10ml SYRINGE IVF PRN ×2 (04:28→08:50)
[2018-03-01] MEDS: Oxycodone/Apap 10/325 1 TAB PO PRN ×2 (05:53→21:15)
[2018-03-01] MEDS ORDERED: Oxycodone/Apap 10/325 1 TAB PO PRN (08:13)
--- NOTE | 2018-03-01 08:36 | Progress Note ---
- Date 03/01/18 Subjective: Patient was seen this morning in his room. He had continued difficulties with elevated blood pressure running from 170s to 190s systolic and 90s to 120s diastolic. He received when necessary hydralazine 10 mg 2 last night. Blood pressure currently is 163/109. He has had intermittent tachycardia as well up to 120. Currently heart rate is 94. He has had headache/migraine overnight and it is somewhat better but he still has a headache. He also complains of chronic pain in his neck and back and chronic numbness in his right arm. He states he's had MRI showing edema in his brainstem and spinal cord. He cannot remember where he had the MRI other than it being in [place]. He cannot remember the name of the physician that he is seen order the MRI. He is trying to contact his significant other who might have that information. He states he does have COPD but has not been taking breathing treatments. He denies shortness of breath at this time. He has had some nausea but no vomiting. He does feel constipated. He has slow urination. He has chronic numbness and pain in his feet from neuropathy. The patient states that after going to [place] he missed his last pain medicine appointment and was told he could no longer receive his pain medications. He states he's been off of pain medication for about a month and a half. He has been using cocaine intermittently. He states he also drinks 4 shots of liquor a couple of times a week. He states on days he does not drink he does not become shaky, confused or anxious. Objective Vital signs: Temperature 97.7 F 03/01/18 04:00 Pulse Rate 91 03/01/18 06:00 Respiratory Rate 15 03/01/18 06:00 Blood Pressure 171/92 H 03/01/18 06:00 Pulse Oximetry 99 03/01/18 06:00 Height/Weight/BMI: Height 1.83 m Weight 74.2 kg Body Mass Index 22.1 Comments: Afebrile, heart rate 91-122, systolic blood pressures 170s to 190s and diastolic blood pressure 90s to 120s. Heart rate 91-122. O2 sat remains in the high 90s on room air. Intake yesterday 1959, he had 3 voids recorded GEN-alert, oriented 3, no acute distress HEENT-sclera anicteric, oropharynx is moist NECK-supple but has pain with movement which is chronic CV-with irregular rhythm. On telemetry he has occasional what appear to be PACs CHEST-clear to auscultation bilaterally ABD-soft, nontender with positive bowel sounds -no Levin EXT-no edema NEURO-no focal deficits. No tremulousness. No signs of confusion SKIN-warm and dry Results - Labs CBC & Chem 7: 03/01/18 04:32 03/01/18 04:32 Labs: Calcium is 10.2 Assessment and Plan (1) Drug-induced psychotic disorder Current visit: Yes Status: Acute (2) Cocaine intoxication Current visit: Yes Status: Acute (3) Hypertension Current visit: Yes Status: Acute (4) Coronary artery disease Current visit: Yes Status: Acute (5) Schizoaffective disorder Current visit: Yes Status: Acute (6) Suicidal ideation Current visit: Yes Status: Acute (7) COPD (chronic obstructive pulmonary disease) Current visit: Yes Status: Acute Assessment and Plan: Impression Psychosis with history of schizophrenia and cocaine intoxication-psychosis seems to have resolved Reported history of schizophrenia PTSD Cocaine use Elevated blood pressure with reported history of hypertension-pressure has been difficult to control. Maxide was initiated yesterday. He has received several doses of IV hydralazine 10 mg. Will add scheduled Norvasc today. Coronary artery disease with no reports of chest pain and normal troponin 2 Recent suicidal ideation Reported COPD-lungs are clear and oxygenation is normal on room air Somnolence secondary to antipsychotics and Ativan-resolved Chronic pain Neuropathy of the feet and chronic numbness of the right arm Plan Discussed with nurse from [facility], this morning, and she states the patient needs to be off of IV antihypertensives for 24 hours before they can accept him there. Regarding hypertension, continue Maxide and add Norvasc 5 mg daily. May need to increase Norvasc to twice a day. Regarding chronic pain, will increase Percocet 10-1 by mouth every 4 hours. It is difficult to tell how much pain and for recent cocaine use is contributing to his elevated blood pressure. He does not appear to be in alcohol withdrawal. He does not have any tremulousness or confusion. We'll try to obtain records from the patient's physicians in [place]. Encourage by mouth fluid intake. DVT Prophylaxis: Lovenox Resuscitation Status: Full Code - Time spent with patient Time with patient PN: 35 minutes - Physician Narrative Narrative: Date: 03/01/18 Time: 831 Hospital Course Summary Disclaimer: The visit summary below is not to be considered part of the above Progress Note.
[2018-03-01] MEDS: ENOXAPARIN 40 MG/0.4 ML INJECTION SQ SCH (08:43)
[2018-03-01] MEDS: PREGABALIN 100 MG CAPSULE PO SCH ×2 (08:51→21:16)
[2018-03-01] MEDS: TRIAMTERENE/HCTZ 37.5 MG-25 MG TABLET PO SCH (08:51)
[2018-03-01] MEDS ORDERED: AMLODIPINE 5 MG TABLET PO SCH ×2 (09:00→11:00)
[2018-03-01] MEDS: POLYETHYL GLYCOL 3350 17gm PACKET PO SCH (19:33)
[2018-03-01] MEDS: ALBUTEROL/IPRATROPIUM 2.5mg-0.5mg/3ml NEB AEROSOL PRN (20:11)
[2018-03-02] MEDS: MORPHINE SULFATE 4mg INJECTION IVP PRN (02:29)
[2018-03-02] MEDS: PREGABALIN 100 MG CAPSULE PO SCH ×2 (08:49→21:40)
[2018-03-02] MEDS: POLYETHYL GLYCOL 3350 17gm PACKET PO SCH (08:49)
[2018-03-02] MEDS: TRIAMTERENE/HCTZ 37.5 MG-25 MG TABLET PO SCH (08:49)
[2018-03-02] MEDS: ENOXAPARIN 40 MG/0.4 ML INJECTION SQ SCH (08:53)
[2018-03-02] MEDS: HYDRALAZINE 20 MG/ML INJECTION IVP PRN (09:00)
[2018-03-02] MEDS: LORazepam 0.5 MG TABLET PO PRN ×2 (09:28→21:38)
--- NOTE | 2018-03-02 10:01 | Progress Note ---
- Date 03/02/18 Subjective: Feels fine this morning, denies complaints. Wanting to know when he can go home. BP remains grossly elevated; 170/110s this morning. Voiding well, slept well overnight. Had a dose of IV morphine this AM for pain; denies pain now. Objective Vital signs: Temperature 98.3 F 03/02/18 04:00 Pulse Rate 86 03/02/18 09:00 Respiratory Rate 11 03/02/18 06:00 Blood Pressure 149/98 H 03/02/18 09:00 Pulse Oximetry 96 03/02/18 06:00 Rhythm: Normal Sinus Rhythm - Constitutional Present: no acute distress, well nourished, well developed - Routine HEENT Exam Head: Present: normocephalic, atraumatic Eye: Present: PERRL ENT: Present: mucous membranes moist, oropharynx clear - Routine Respiratory Exam Present: CTA bilaterally. Absent: rales, rhonchi, wheezes - Routine Cardiovascular Exam Present: RRR. Absent: JVD - Routine Abdominal Exam Present: soft, non distended, non tender - Routine Extremities Exam Present: no edema, non tender - Routine Skin Exam Present: intact, dry, warm - Routine Neurological Exam Present: alert, normal speech - Routine Psychiatric Exam Comments: flat affect Results - Labs CBC & Chem 7: 03/02/18 07:46 03/02/18 07:47 Labs: Previous labs reviewed; creatinine trending up very slowly. Assessment and Plan Assessment and Plan: Impression: Psychosis with history of schizophrenia and cocaine intoxication-psychosis seems to have resolved Reported history of schizophrenia PTSD Cocaine use Elevated blood pressure with reported history of hypertension-pressure has been difficult to control. Maxide has helped but BP very labile. Coronary artery disease with no reports of chest pain and normal troponin 2 Recent suicidal ideation, denies currently Reported COPD-lungs are clear and oxygenation is normal on room air Somnolence secondary to antipsychotics and Ativan-resolved Chronic pain; receiving po oxycodone + IV morphine Neuropathy of the feet and chronic numbness of the right arm LESLIE with cr increased to 1.6, has been increasing very slowly; may be prerenal versus lack of autoregulation with BP shifts and mild ischemic injury Plan: Previously discussed with nurse from [facility] on 03/01 (by Dr. Plascencia) and he would need to be off of all IV meds x 24 hours to be stable for DC there Regarding hypertension, continue Maxide and will add nifedipine 30 mg daily; may go to BID dosing if needed, will monitor today Regarding chronic pain, will continue Percocet 10-1 by mouth every 4 hours as needed. I discontinued the IV morphine, will need to use po meds for control. He does have a history of chronic pain and of polysubstance abuse; no plan to increase narcotic dosing further at this point. It is difficult to tell how much pain and for recent cocaine use is contributing to his elevated blood pressure; no evidence of EtOH withdrawal. Encourage po intake of fluids and nutrition. Creatinine slightly increasing; will check urine Na/creat today, suspect prerenal and if unable to take adequate po will need fluids but would prefer to hold off on salt load. Continue other meds as ordered, monitor closely in ICU today given labile moods and recent psychosis and concern for self harm. I am hopeful he will be ready for DC to [facility] tomorrow if tolerating po meds, renal function stable, BP improved. Discussed with bedside RN and case management. DVT Prophylaxis: Lovenox - Physician Narrative Narrative: Date: 03/02/18 Time: 0958 Hospital Course Summary Disclaimer: The visit summary below is not to be considered part of the above Progress Note. Hospital Course: 03/02/18 Previously discussed with nurse from [facility] on 03/01 (by Dr. Plascencia) and he would need to be off of all IV meds x 24 hours to be stable for DC there Regarding hypertension, continue Maxide and will add nifedipine 30 mg daily; may go to BID dosing if needed, will monitor today Regarding chronic pain, will continue Percocet 10-1 by mouth every 4 hours as needed. I discontinued the IV morphine, will need to use po meds for control. He does have a history of chronic pain and of polysubstance abuse; no plan to increase narcotic dosing further at this point. It is difficult to tell how much pain and for recent cocaine use is contributing to his elevated blood pressure; no evidence of EtOH withdrawal. Encourage po intake of fluids and nutrition. Creatinine slightly increasing; will check urine Na/creat today, suspect prerenal and if unable to take adequate po will need fluids but would prefer to hold off on salt load.
[2018-03-02] MEDS: ALBUTEROL/IPRATROPIUM 2.5mg-0.5mg/3ml NEB AEROSOL PRN (10:38)
[2018-03-02] MEDS: Oxycodone/Apap 10/325 1 TAB PO PRN ×2 (16:43→23:00)
[2018-03-02] MEDS ORDERED: Oxycodone *IR* 5 MG TABLET PO ONE (18:47)
[2018-03-02] MEDS: SALINE FLUSH 10ml SYRINGE IVF PRN (21:44)
[2018-03-03] MEDS: LORazepam 0.5 MG TABLET PO PRN ×3 (02:04→21:41)
[2018-03-03] MEDS: ENOXAPARIN 40 MG/0.4 ML INJECTION SQ SCH (10:21)
[2018-03-03] MEDS: PREGABALIN 100 MG CAPSULE PO SCH ×2 (10:21→21:42)
[2018-03-03] MEDS: POLYETHYL GLYCOL 3350 17gm PACKET PO SCH (10:22)
[2018-03-03] MEDS: TRIAMTERENE/HCTZ 37.5 MG-25 MG TABLET PO SCH (10:23)
[2018-03-03] MEDS: Oxycodone/Apap 10/325 1 TAB PO PRN ×2 (10:28→21:39)
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
--- NOTE | 2018-03-03 15:58 | Progress Note ---
- Date 03/03/18 Subjective: Uneventful night; did have some uncontrolled pain, improved with oxycodone 10 mg in addition to his ordered meds. This morning he was wanting to go home; he states he has a court date tomorrow in [place] and needs to be released for that. Not wanting to go to inpatient psych. On further questioning, he has no PCP currently and will need pain medications prescribed until he can establish care with someone. He can't tell me that he will be safe; he is not sure if he will hurt himself. BP much improved on nifedipine; 120s systolic. Objective Vital signs: Temperature 97.1 F 03/03/18 15:00 Pulse Rate 103 H 03/03/18 11:00 Respiratory Rate 56 H 03/03/18 11:00 Blood Pressure 121/86 03/03/18 10:34 Pulse Oximetry 97 03/03/18 15:05 Rhythm: Normal Sinus Rhythm Height/Weight/BMI: Weight 77.1 kg - Constitutional Present: no acute distress, well nourished, well developed, cooperative - Routine HEENT Exam Head: Present: normocephalic, atraumatic Eye: Present: PERRL. Absent: conjunctival icterus ENT: Present: mucous membranes moist, oropharynx clear - Routine Respiratory Exam Present: CTA bilaterally. Absent: rhonchi, wheezes, crackles - Routine Cardiovascular Exam Present: RRR. Absent: no murmur - Routine Abdominal Exam Present: soft, non distended, non tender - Routine Extremities Exam Present: no edema, pulses intact - Routine Skin Exam Present: dry, warm. Absent: rash - Routine Neurological Exam Present: alert, normal speech Results - Labs CBC & Chem 7: 03/03/18 04:27 03/03/18 04:27 Labs: Labs reviewed in the system as above. Assessment and Plan Assessment and Plan: Impression: Psychosis with history of schizophrenia and cocaine intoxication-psychosis seems to have resolved, still anxious and impulsive however Reported history of schizophrenia PTSD Cocaine use Elevated blood pressure with reported history of hypertension-pressure has been difficult to control, improved on maxide and nifedipine. Coronary artery disease with no reports of chest pain and normal troponin 2 Recent suicidal ideation; Reported COPD-lungs are clear and oxygenation is normal on room air Somnolence secondary to antipsychotics and Ativan-resolved now and anxious at times Chronic pain; receiving po oxycodone, off all IV medications Neuropathy of the feet and chronic numbness of the right arm LESLIE with cr increased to 1.6--> now improving, cr down to 1.5 today, good UOP --> Urine Na elevated, suspect mild tubular injury from BP fluctuations Plan: Previously discussed with nurse from [facility] on 03/01 (by Dr. Plascencia) and he would need to be off of all IV meds x 24 hours to be stable for DC there--now meeting those criteria. Regarding hypertension, continue Maxide and BID nifedipine, well controlled currently I am not comfortable with DC home today; he has no f/u plan, cannot verbalize to me that he will be safe and will not contract for safety --> Psych consulted, appreciate assistance, agreeable to going to inpatient psych now, waiting to hear back from facility Regarding chronic pain, will continue Percocet 10-1 by mouth every 4 hours as needed; no further IV meds planned He does have a history of chronic pain and of polysubstance abuse; no plan to increase narcotic dosing further at this point. It is difficult to tell how much pain and for recent cocaine use is contributing to his elevated blood pressure; no evidence of EtOH withdrawal, suspect chronic HTN primarily Encourage po intake of fluids and nutrition. Continue other meds as ordered, continue to monitor closely in ICU today given labile moods and recent psychosis and concern for self harm. He is medically stable for DC at any point when an inpatient psych bed is available. Discussed with patient, bedside RN, Dr. James from psychiatry. DVT Prophylaxis: Lovenox Resuscitation Status: Full Code - Physician Narrative Narrative: Date: 03/03/18 Time: 1555 Hospital Course Summary Disclaimer: The visit summary below is not to be considered part of the above Progress Note. Hospital Course: 03/02/18 Previously discussed with nurse from [facility] on 03/01 (by Dr. Plascencia) and he would need to be off of all IV meds x 24 hours to be stable for DC there Regarding hypertension, continue Maxide and will add nifedipine 30 mg daily; may go to BID dosing if needed, will monitor today Regarding chronic pain, will continue Percocet 10-1 by mouth every 4 hours as needed. I discontinued the IV morphine, will need to use po meds for control. He does have a history of chronic pain and of polysubstance abuse; no plan to increase narcotic dosing further at this point. It is difficult to tell how much pain and for recent cocaine use is contributing to his elevated blood pressure; no evidence of EtOH withdrawal. Encourage po intake of fluids and nutrition. Creatinine slightly increasing; will check urine Na/creat today, suspect prerenal and if unable to take adequate po will need fluids but would prefer to hold off on salt load.
[2018-03-03 20:14] VITALS: TEMP 98
[2018-03-03] MEDS: ALBUTEROL/IPRATROPIUM 2.5mg-0.5mg/3ml NEB AEROSOL PRN (23:57)
[2018-03-04] MEDS: Oxycodone/Apap 10/325 1 TAB PO PRN ×3 (03:34→10:45)
[2018-03-04 06:59] VITALS: PULSE 103; RESP 76
[2018-03-04 07:00] VITALS: O2SAT 97
[2018-03-04] MEDS: ENOXAPARIN 40 MG/0.4 ML INJECTION SQ SCH (09:00)
[2018-03-04] MEDS: POLYETHYL GLYCOL 3350 17gm PACKET PO SCH (09:00)
[2018-03-04] MEDS: PREGABALIN 100 MG CAPSULE PO SCH (09:37)
[2018-03-04] MEDS: TRIAMTERENE/HCTZ 37.5 MG-25 MG TABLET PO SCH (09:37)
--- NOTE | 2018-03-04 09:43 | Progress Note ---
Progress Note: I was sitting at the CCU desk doing paperwork for another patient, when Mr. Barlow came out of his room and asked to speak with me. He stated he was ready to go. He stated he was feeling better. He continued to have his chronic neck and back pain. He denied any chest pain or headache. I did discuss with him that after he met with psychiatry yesterday, the psychiatrist recommended inpatient psychiatry treatment. The patient then denied seeing the psychiatrist yesterday. He also denied refusing to contract for safety with the hospitalist yesterday. He did allow me to do an examination. On exam he was alert and distressed because he wanted to leave the hospital. He stated his mother was ill and he needed to go see her. HEENT reveals sclerae to be anicteric and pupils are equal. Oropharynx is moist. Neck is supple. Chest is clear to auscultation. Cardiovascular reveals a borderline tachycardic rate with irregular rhythm. Abdomen is soft and nontender. Extremities are free of edema. Skin is warm and dry and without rashes. On neurologic exam, he is up and walking with a stable gait. On lab work basic metabolic is essentially normal other than BUN of 21. Calcium is 10.4. Phosphorus 4.6. Magnesium 1.9. Albumin 4.4. Impression Psychosis with history of schizophrenia and cocaine intoxication-psychosis seems to have resolved, still anxious and impulsive however Reported history of schizophrenia Reported suicidal ideation with inability to contract for safety yesterday. Dr. Rivas, psychiatrist did see the patient and recommended inpatient psychiatric treatment. He recommended the patient not leave AMA and if the patient threatened to leave AMA, initiate court hold. PTSD Cocaine use Elevated blood pressure with reported history of hypertension-pressure has been difficult to control, improved on maxide and nifedipine. Coronary artery disease with no reports of chest pain and normal troponin 2 Reported COPD-lungs are clear and oxygenation is normal on room air Somnolence secondary to antipsychotics and Ativan-resolved now and anxious at times Chronic pain; receiving po oxycodone, off all IV medications Neuropathy of the feet and chronic numbness of the right arm LESLIE with cr increased to 1.6--> now improving, cr down to 1.2 today, good UOP --> Urine Na elevated, suspect mild tubular injury from BP fluctuations Plan The patient appears medically stable at this time for inpatient psychiatric treatment. Pain is controlled. Blood pressure is much better controlled on his oral medications. Unfortunately, the patient is now refusing to stay in the hospital or being transferred for inpatient psychiatric treatment. He did leave the hospital briefly and the Police Department was notified and walked the patient safely back into his room. We did discuss with him that we will need to initiate a court hold. He is not in agreement and stated that he would contact his nutrition technician. At this point, although the patient is upset, he is not acting aggressively or threatening. Case management has been notified and will discuss with Jaron tapia/Emmie. Greater than 40 minutes of critical care time spent seeing and evaluating the patient in determining care plan. At this time he is medically stable for transfer for inpatient psychiatric treatment. He has not required any IV medications for pain or blood pressure control.
--- NOTE | 2018-03-04 09:50 | Discharge Summary ---
Discharge Information Date of admission: 03/01/18 10:05 Anticipated date of discharge: 03/04/18 Attending Physician: Rosanna Plascencia MD Consults: 03/03/18 09:08 Physician Consult [CONS] Routine Consulting Provider: Mirian James Reason For Exam: Suicidal, polysubstance use Ordering Provider has Notified Confectionery Cooker: Yes - Discharge Diagnosis (1) Drug-induced psychotic disorder Status: Acute (2) Cocaine intoxication Status: Acute (3) Hypertension Status: Acute (4) Coronary artery disease Status: Acute (5) Schizoaffective disorder Status: Acute (6) Suicidal ideation Status: Acute (7) COPD (chronic obstructive pulmonary disease) Status: Acute Psychosis with history of schizophrenia and cocaine intoxication-psychosis seems to have resolved, still anxious and impulsive however Reported history of schizophrenia PTSD Cocaine use Elevated blood pressure with reported history of hypertension-pressure has been difficult to control, improved on maxide and nifedipine. Coronary artery disease with no reports of chest pain and normal troponin 2 Recent suicidal ideation; Reported COPD-lungs are clear and oxygenation is normal on room air Somnolence secondary to antipsychotics and Ativan-resolved now and anxious at times Chronic pain; receiving po oxycodone, off all IV medications Neuropathy of the feet and chronic numbness of the right arm LESLIE with cr increased to 1.6--> now improving, cr down to 1.2 today, good UOP --> Urine Na elevated, suspect mild tubular injury from BP fluctuations - Laboratory Labs: 03/03/18 04:27 03/04/18 04:51 Laboratory Tests 02/27/18 02/27/18 02/27/18 21:27 21:27 21:35 Sodium 144 Potassium 3.8 Chloride 108 H Carbon Dioxide 26 Anion Gap 10 BUN 12.0 Creatinine 1.4 GFR Calculation 52 BUN/Creatinine Ratio 9 Glucose 110 Calculated Osmolality 278 Calcium 9.2 Phosphorus Magnesium Total Bilirubin 0.20 Icterus Index < 2 AST 21 ALT 15 Alkaline Phosphatase 49 Troponin I < 0.012 Total Protein 6.7 Albumin 3.9 Globulin 2.8 Albumin/Globulin Ratio 1.4 TSH 1.49 Ur Random Creatinine Ur Random Sodium Salicylates < 1.0 L Urine Opiates Screen Negative Ur Oxycodone Screen Negative Urine Methadone Screen Negative Ur Propoxyphene Screen Negative Acetaminophen < 10 L Ur Barbiturates Screen Negative U Tricyclic Antidepress Negative Ur Phencyclidine Scrn Negative Ur Amphetamines Screen Negative U Methamphetamines Scrn Negative U Benzodiazepines Scrn Negative Urine Cocaine Screen Positive U Cannabinoids Screen Negative Alcohol, Quantitative <10 02/28/18 02/28/18 03/01/18 07:46 07:46 04:32 Sodium Potassium Chloride Carbon Dioxide Anion Gap BUN Creatinine GFR Calculation BUN/Creatinine Ratio Glucose Calculated Osmolality Calcium 9.1 10.2 D Phosphorus 3.1 Magnesium 2.1 Total Bilirubin Icterus Index AST ALT Alkaline Phosphatase Troponin I < 0.012 Total Protein Albumin Globulin Albumin/Globulin Ratio TSH Ur Random Creatinine Ur Random Sodium Salicylates Urine Opiates Screen Ur Oxycodone Screen Urine Methadone Screen Ur Propoxyphene Screen Acetaminophen Ur Barbiturates Screen U Tricyclic Antidepress Ur Phencyclidine Scrn Ur Amphetamines Screen U Methamphetamines Scrn U Benzodiazepines Scrn Urine Cocaine Screen U Cannabinoids Screen Alcohol, Quantitative 03/02/18 03/02/18 03/03/18 07:47 23:02 04:27 Sodium Potassium Chloride Carbon Dioxide Anion Gap BUN Creatinine GFR Calculation BUN/Creatinine Ratio Glucose Calculated Osmolality Calcium 10.0 9.4 Phosphorus Magnesium Total Bilirubin Icterus Index AST ALT Alkaline Phosphatase Troponin I Total Protein Albumin Globulin Albumin/Globulin Ratio TSH Ur Random Creatinine 34.8 Ur Random Sodium 52 Salicylates Urine Opiates Screen Ur Oxycodone Screen Urine Methadone Screen Ur Propoxyphene Screen Acetaminophen Ur Barbiturates Screen U Tricyclic Antidepress Ur Phencyclidine Scrn Ur Amphetamines Screen U Methamphetamines Scrn U Benzodiazepines Scrn Urine Cocaine Screen U Cannabinoids Screen Alcohol, Quantitative 03/04/18 04:51 Sodium Potassium Chloride Carbon Dioxide Anion Gap BUN Creatinine GFR Calculation BUN/Creatinine Ratio Glucose Calculated Osmolality 276 Calcium Phosphorus 4.6 H Magnesium 1.9 Total Bilirubin Icterus Index AST ALT Alkaline Phosphatase Troponin I Total Protein Albumin 4.4 Globulin Albumin/Globulin Ratio TSH Ur Random Creatinine Ur Random Sodium Salicylates Urine Opiates Screen Ur Oxycodone Screen Urine Methadone Screen Ur Propoxyphene Screen Acetaminophen Ur Barbiturates Screen U Tricyclic Antidepress Ur Phencyclidine Scrn Ur Amphetamines Screen U Methamphetamines Scrn U Benzodiazepines Scrn Urine Cocaine Screen U Cannabinoids Screen Alcohol, Quantitative History of Present Illness HPI: This is a 58 y/o male who has a history of cocaine abuse. Apparently his girl friend brought him to the ED tonight because he continued to have very uncontrolled behavior. Please see ED and Psych note for further details for the patient is unable to provide to me directly tonight. The patient was hostile in the ED and was given a sublingual antipsychotic which did help stabilize him. He was seen by psychiatric screener who recommended admission to OSH. Currently there are no beds available. Thus the patient is not stable for discharge to the community. He will be medically admitted for cocaine detoxification. It is not possible to get a history from the patient and the girlfriend is long gone. Thus this author depended on the information gathered by the ED staff regarding this patient. Objective Vital signs: Temperature 98.0 F 03/03/18 16:00 Pulse Rate 103 H 03/04/18 05:35 Respiratory Rate 76 H 03/04/18 05:35 Blood Pressure 145/84 H 03/04/18 06:41 Pulse Oximetry 97 03/04/18 06:49 Rhythm: Normal Sinus Rhythm Height/Weight/BMI: Weight 77.1 kg Hospital Course This is a general summary of the patient's hospital course. For more details refer to the complete medical record. Hospital course: The patient was admitted on 02/28/2018 with psychosis secondary to cocaine use and history of schizophrenia. He also had suicidal ideation. Patient was placed on suicide precautions. He was sedated in the emergency room with Saphris and given IV fluids. He was admitted to CCU for cocaine detox, suicide precautions, and to manage blood pressure. He did require IV hydralazine for elevated blood pressures. He was started on Maxide for hypertension, but the day after admission was still requiring when necessary iv hydralazine. He was later started on nifedipine 30 mg twice a day and blood pressure was markedly improved. On the day after admission, the patient did have what he described as migraine headache as well as his chronic neck and back pain. He was started on Percocet 10 and when necessary morphine. His headaches did resolve. Neck pain and back pain became tolerable. The patient had a mild elevation in creatinine up to 1.6, but this normalized to 1.2. He had reported history of coronary artery disease, but no chest pain and troponins were normal 2. He had reported history of COPD, but denied any shortness of breath and oxygen remained in the high 90s on room air. Regarding his suicidal ideation, psychiatry was consulted and recommended inpatient psychiatric treatment. On the day prior to discharge, he could not contract for safety with the hospitalist. Plans were made for transfer to [facility] for inpatient psychiatric treatment. Jaron Ascencio had previously initiated a court hold. The patient was agreeable to inpatient psychiatric treatment until the morning of 03/04/2018 when he stated he wanted to leave the hospital. He did leave briefly AGAINST MEDICAL ADVICE, but law enforcement was notified and they were able to talk him into coming back into the hospital. When the patient was notified that there was a court hold, he did comply with transport to the psychiatric facility, but he was angry and upset about the transfer. On the morning of 03/04/2018 it was felt the patient was stable for transfer to inpatient psychiatry. Blood pressure had been much better controlled on nifedipine and Maxide. He was not requiring any IV medication for blood pressure control or for pain. He was eating and drinking well. His blood pressure did become elevated when he was agitated on the morning of transfer, the previously had been much better controlled. He did take his morning medications. Greater than 30 minutes of time was spent seeing and evaluating the pt today on dismissal. I did talk with the accepting physician at [facility] about the pt' s condition. Resuscitation Status: Full Code Discharge Plan - Discharge Disposition Disposition: 65 To Psych Hosp/Unit *Condition: Improved Reason For Visit (Visit label in EMR): SI; acute intoxication - Discharge Medications *Discharge Medications: New Albuterol/Ipratropium [Duoneb] 3 ml AEROSOL RTQID PRN each PRN Reason: Dyspnea LORazepam [Ativan] 0.5 mg PO TID PRN tab PRN Reason: Agitation/Restlessness NIFEdipine XL [Procardia Xl] 30 mg PO BID tab Oxycodone/Apap 10/325 [Percocet 10/325] 1 tab PO Q4H PRN tab PRN Reason: Pain PEG 3350 17gm PACKET [Miralax] 17 gm PO DAILY packet Triamterene/Hctz 37.5/25 Tab [MAXZIDE-25 eqv] 1 tab PO DAILY tab Continue Pregabalin [Lyrica] 200 mg PO BID Discontinued Oxycodone/Apap 10/325 [Percocet 10/325] 1 tab PO Q6H PRN PRN Reason: Pain Morphine Sulfate *IR* [Morphine Sulfate *Ir*] 15 mg PO Q12H methylPREDNISolone [Medrol DOS-SHAWNEE] 1 pack PO UNK Lidocaine 1 each TP Q8H PRN PRN Reason: Pain - Discharge Packet/Instructions *Diet: diet as tolerated *Activity: activity as tolerated *Pain Management/Treatment: percocet and lyrica *Wound Care: n/a Additional Instructions: bmp on 03/06/18 to follow with new blood pressure medications. Check blood pressure at least once daily. BP meds may need to be adjusted. *Expected Signs/Symptoms: blood pressure should stabilize with current treatment. Your dosages may need to be adjusted. *Notify Physician if: n/a *During Business Hours Contact: n/a *After Business Hours Contact: n/a *Pending Lab/Results: No Pending Lab - Referrals/Follow Up - Patient Handouts - Dismissal Complete Discharge Instructions are:: Complete Physician Narrative - Narrative Attestation Narrative: Date: 03/04/18 Time: 946
[2018-03-04] MEDS ORDERED: LORazepam 1 MG TABLET PO ONE (10:29)
[2018-03-04] MEDS: LORazepam 0.5 MG TABLET PO PRN (10:45)
[2018-03-04 10:57] VITALS: BP 174/102
== END 2018-03-04 10:58 | DRG 897 ==
LOC: CCU 20:38 → ED 20:38 → SUATTDRO 02-28 01:12 → CCU 02-28 02:00
PROVIDERS: ADMIT Emergency Medicine; ATTEND Internal Medicine